=== PATIENT | female | born 1960 | race Caucasian/White ===

== ENCOUNTER 2021-08-31 12:27 | Emergency (ER) | payer OTHER ==
[~2021-08-31] VITALS: Ht 162.6 cm; Wt 72.2 kg
[2021-08-31 12:28] VITALS: BP 127/92
[2021-08-31] MEDS ORDERED: ACYC-258 PO (12:59)
[2021-08-31] MEDS ORDERED: NAPR-1704 PO (12:59)
[2021-08-31] MEDS ORDERED: LID5T TP (12:59)
[2021-08-31 13:05] VITALS: BP 127/92
== END 2021-08-31 13:05 | disposition home or self-care (01) ==
LOC: MED 12:27
DX: B02.9 Zoster without complications (principal); Z79.899 Other long term (current) drug therapy
CPT/HCPCS: 99283